=== PATIENT | female | born 1995 | race Caucasian/White ===

== ENCOUNTER 2016-11-04 14:43 | Emergency (ER) | payer OTHER ==
[2016-11-04 16:12] VITALS: BP 103/68
== END 2016-11-04 16:38 | disposition home or self-care (01) ==
LOC: ED 14:43
DX: B34.9 Viral infection, unspecified (principal); J45.909 Unspecified asthma, uncomplicated
CPT/HCPCS: J7030; J7613; J7644

== ENCOUNTER 2018-07-25 11:34 | Emergency (ER) | payer OTHER ==
[~2018-07-25] VITALS: Ht 165.1 cm; Wt 88.0 kg
[2018-07-25 11:46] VITALS: Ht 165.1 cm; Wt 88.0 kg
[2018-07-25 13:02] VITALS: BP 115/70
== END 2018-07-25 13:02 | disposition home or self-care (01) ==
LOC: ED 11:34
DX: J02.9 Acute pharyngitis, unspecified (principal); J01.90 Acute sinusitis, unspecified; J45.909 Unspecified asthma, uncomplicated